=== PATIENT | male | born 1965 | race African-American/Black ===

== ENCOUNTER 2018-11-23 17:47 | Emergency (ER) | payer SELFPAY ==
[2018-11-23] MEDS: 0.9 % SODIUM CHLORIDE 1,000 ML IV ONE ×2 (17:55→18:11)
[2018-11-23] MEDS: fentaNYL CITRATE/PF 100 MCG/2 ML INJ. ONE (17:58)
[2018-11-23] MEDS: fentaNYL CITRATE/PF 100 MCG/2 ML INJ. IVP ONE ×2 (18:10→18:20)
--- NOTE | 2018-11-23 19:05 | ED Physician Documentation ---
General Adult - HISTORIAN Historian: patient - HPI Stated Complaint: abd pain Chief Complaint: General Adult Further Comments: yes (53 year old male patient brought in from EMS. Patient was picked up at [facility] with his . The vehicle did not have air conditioning. Patient is a very poor historian. Can tell us he has lymphoma and is allergic to morphine. Call to [facility] - per Palliative Care note from 11/16/08 patient has liver Cirrhosis, sickle cell, Stage 4 Non-hodgkins lymphoma.) - ROS CONST: sweating, weight loss EYES/ENT: none GI/: other (abdominal pain) - PAST HX Past History: other (Non-Hodgkins lymphoma; cirrhosis; sickle cell) Allergies/Adverse Reactions: Allergies Allergy/AdvReac Type Severity Reaction Status Date / Time morphine Allergy Verified 11/23/18 18:08 Home Medications: Ambulatory Orders Medication Instructions Recorded Unobtainable 11/23/18 - SOCIAL HX Smoking History: non-smoker - FAMILY HX Family History: No - VITAL SIGNS Vital Signs: Vital Signs Temp Pulse Resp BP Pulse Ox 97.6 F 86 23 122/79 98 11/23/18 17:47 11/23/18 17:47 11/23/18 17:47 11/23/18 17:47 11/23/18 17:47 - REVIEWED ASSESSMENTS Nursing Assessment Reviewed: Yes Vitals Reviewed: Yes Progress - Progress Progress: Patient unable to provide ROS or HPI on arrival. Call to [facility] for medical history. No family at bedside. Call from patient's . She states patient is a full code, he is on "comfort care" and not Palliative care. Patient had 1 treatment of chemotherapy in Jan. "He can't tolerate it". reports that the patient has an appointment with the [place] [facility] on Wednesday. He has been off his narcotics since 11/16/18 due to a prescription writing problem. Patient was on hydrocodone and fentanyl patches. reports that the patient is a full code. 2014 at bedside; patient sleeping. 2100 Treatment options discussed; patient is too weak to stand or sit on his own. Is not currently in hospice. 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 would like patient admitted to [facility]. Call to [facility]. Per admission advisor - palliative care notes state patient has been dismissed from 2 hospice services; narcotic are on hold for illicit drug use. Patient accepted by Dr Estes who reports patient was previously a no code during recent admission. ED Results Lab/Radiology - Lab Results Lab Results: Lab Results 11/23/18 18:35 WBC 4.00 K/ul K/ul (4.00-12.00) RBC 4.38 M/ul M/ul (3.90-5.20) Hgb 12.6 g/dL g/dL (12.0-18.0) Hct 38.3 % % (37.0-53.0) MCV 87.0 fl fl (80.0-100.0) MCH 28.8 pg pg (28.0-34.0) MCHC 33.0 g/dL g/dL (30.0-36.0) RDW 20.6 % H % (11.3-14.3) Plt Count 41 K/mm3 L K/mm3 (130-400) - Orders Orders: ED Orders Category Date Time Status Place IV Lock 1T Care 11/23/18 17:55 Active CBC/PLATELET/DIFF Stat Lab 11/23/18 18:35 Completed CMP Stat Lab 11/23/18 18:35 Received 0.9 % Sodium Chloride [Normal Saline] 1,000 ml Med 11/23/18 17:48 Discontinued IV .STK-MED 0.9 % Sodium Chloride [Normal Saline] 1,000 ml Med 11/23/18 17:55 Discontinued IV NOW fentaNYL CITRATE/PF [Sublimaze] Med 11/23/18 17:48 Discontinued 100 mcg .ROUTE .STK-MED ONE fentaNYL CITRATE/PF [Sublimaze] Med 11/23/18 18:16 Discontinued 25 mcg IVP NOW ONE fentaNYL CITRATE/PF [Sublimaze] Med 11/23/18 18:17 Discontinued 75 mcg IVP NOW ONE General Adult Physical Exam - PHYSICAL EXAM GENERAL APPEARANCE: thin; frail EENT: eye inspection normal, JULIAN, scleral icterus RESPIRATORY: no resp distress, chest non-tender, other (RA Sat 88%) CVS: reg rate & rhythm, heart sounds normal, equal pulses, no murmur, tachycardia ABDOMEN: no organomegaly, normal bowel sounds, no abdominal bruit, no distension, tenderness (generalized), decreased BS, other (firm) BACK: normal inspection, no CVA tenderness SKIN: diaphoresis EXTREMITIES: no evidence of injury, no edema NEURO: weakness/sensory loss (generalized weakness), speech/cognition abnml, depressed mood/affect Discharge Clincal Impression: severe weakness Non-Hodgkin lymphoma Qualifiers: Non-Hodgkin lymphoma type: unspecified type Lymphoma site: multiple regions Iglesia lified Code(s): C85.98 - Non-Hodgkin lymphoma, unspecified, lymph nodes of multiple sites Abdominal pain Qualifiers: Abdominal location: generalized Qualified Code(s): R10.84 - Generalized abdominal pain Condition: Serious Disposition: 02 XFER SHT-TRM HOSP Decision to Admit: NO Decision Time: 20:59
[2018-11-23 19:07] LABS: BASOPHILS % 0.5 % (0.0-1.5); NEUTROPHILS # 2.6 # k/uL (1.4-7.7)
[2018-11-23 19:50] LABS: eGFR (Non-African) > 60
[2018-11-24 01:27] VITALS: BP 101/57
== END 2018-11-23 23:45 | disposition short-term general hospital (02) ==
LOC: ED 17:47
DX: C85.98 Non-Hodgkin lymphoma, unspecified, lymph nodes of multiple sites (principal); R10.84 Generalized abdominal pain
CPT/HCPCS: 80053; 85025; 96374; 99283; J3010; J7030